=== PATIENT | female | born 1960 ===

== ENCOUNTER 2017-10-27 22:56 | Emergency (ER) | payer BC, MEDICAID ==
[2017-10-27 23:00] VITALS: BMI 37.0
[2017-10-27 23:03] VITALS: BP 138/87; RESP 16; TEMP 98.2; O2SAT 97
[2017-10-27] MEDS ORDERED: Sodium Chloride 0.9% 1,000 ML IV STA (23:18)
[2017-10-28 00:33] LABS: BASO # 0.1 K/uL (0.0-0.2); BASO % 0.6 % (0.0-2.0); EOS # 0.3 K/uL (0.0-0.7); EOS % 2.4 % (0.0-4.0); HEMOGLOBIN 13.4 g/dL (12.0-16.0); LYMPH # 2.6 K/uL (1.0-4.3); MEAN CELL VOLUME 91.6 fl (81.0-99.0); MEAN CORPUSCULAR HEMOGLOBIN 31.6 pg (27.0-31.0); MEAN CORPUSCULAR HGB CONC 34.5 g/dL (33.0-37.0); MEAN PLATELET VOLUME 8.2 fl (7.2-11.7); MONO # 0.9 K/uL (0.0-0.8); MONO % 7.3 % (0.0-10.0); NEUT % 69.7 % (50.0-75.0); RBC 4.24 Mil/uL (3.80-5.20); RED CELL DISTRIBUTION WIDTH 13.3 % (11.5-14.5); WHITE BLOOD COUNT 12.9 K/uL (4.8-10.8)
[2017-10-28 00:36] LABS: ALT/SGPT 37 U/L (9-52); AST/SGOT 32 U/L (14-36); CALCIUM 9.9 mg/dL (8.4-10.2); GFR AFRICAN-AMERICAN > 60; GFR NON-AFRICAN AMERICAN > 60; LIPASE 41 U/L (23-300)
[2017-10-28 00:39] LABS: SQUAMOUS EPITHIAL 2 /hpf (0-5); URINE BILIRUBIN NEGATIVE (NEGATIVE); URINE BLOOD SMALL (NEGATIVE); URINE CLARITY SLIGHTY-CLOUDY (Clear); URINE COLOR YELLOW (YELLOW); URINE GLUCOSE (UA) NEG (Normal); URINE LEUKOCYTE ESTERASE NEG Leu/uL (Negative); URINE PROTEIN 30 mg/dL (NEGATIVE); URINE UROBILINOGEN 0.2-1.0 mg/dL (0.2-1.0)
--- NOTE | 2017-10-28 00:57 | ED PDOC ---
HPI:Nausea, Vomiting, Diarrhea Time Seen by Provider: 10/27/17 23:05 Chief Complaint (Nursing): Dizziness/Lightheaded Chief Complaint (Provider): Vomiting and Dizziness History Per: Patient History/Exam Limitations: no limitations Onset/Duration Of Symptoms: Hrs (x1) Current Symptoms Are (Timing): Still Present Associated Symptoms: Nausea, Vomiting. denies: Other ((-) abdominal pain or headache) Additional Complaint(s): 57 year old female presents to ED with complaints of vomiting and dizziness x1 hour and has a past medical history of diabetes mellitus, HTN, and dyslipidemia. Patient notes sudden on set of symptoms, describing her dizziness as a "room spinning" sensation. (+) nausea, (-) head injury, headache or abdominal pain. PCP: Nida Past Medical History Reviewed: Historical Data, Nursing Documentation, Vital Signs Vital Signs: Last Vital Signs Temp 98.2 F 10/27/17 23:00 Pulse 100 H 10/27/17 23:00 Resp 16 10/27/17 23:00 BP 138/87 10/27/17 23:00 Pulse Ox 97 10/27/17 23:00 - Medical History PMH: Diabetes, HTN, Hypercholesterolemia, Migraine - Surgical History Surgical History: Appendectomy, CABG (3), Cholecystectomy, (x3) - Family History Family History: States: Unknown Family Hx - Living Arrangements Living Arrangements: With Family - Social History Current smoker - smoking cessation education provided: No Ex-Smoker (has not smoked in the last 12 months): No Alcohol: None Drugs: Denies - Immunization History Hx Tetanus Toxoid Vaccination: Yes (2012) - Home Medications Home Medications: Ambulatory Orders Medication Instructions Recorded Aspirin [Aspirin EC] 81 mg PO DAILY #0 ect 11/02/15 Atorvastatin [Lipitor] 10 mg PO DAILY #0 tab 11/02/15 Enalapril Maleate [Vasotec] 5 mg PO DAILY #0 tab 11/02/15 GlipiZIDE [Glucotrol] 5 mg PO QPM #0 tab 11/02/15 GlipiZIDE [Glucotrol] 10 mg PO DAILY #0 tab 11/02/15 Hydrochlorothiazide [HCTZ] 25 mg PO DAILY #0 tablet 11/02/15 Ketotifen Fumarate [Itchy Eye] 1 drop EACHEYE BID PRN #0 drops 11/02/15 Loratadine [Claritin] 10 mg PO DAILY PRN #0 tab 11/02/15 Penicillin VK [Penicillin VK Tab] 500 mg PO BID #20 tab 11/02/15 amLODIPine [Norvasc] 10 mg PO DAILY #0 tab 11/02/15 Meclizine [Antivert] 25 mg PO Q6 PRN #16 tab 10/28/17 - Allergies Allergies/Adverse Reactions: Allergies Allergy/AdvReac Type Severity Reaction Status Date / Time metformin Allergy RASH Verified 10/27/17 22:59 Review of Systems ROS Statement: Except As Marked, All Systems Reviewed And Found Negative Gastrointestinal: Positive for: Nausea, Vomiting. Negative for: Abdominal Pain Neurological: Positive for: Dizziness. Negative for: Headache Physical Exam - Reviewed Nursing Documentation Reviewed: Yes Vital Signs Reviewed: Yes - Physical Exam Appears: Positive for: Uncomfortable Head Exam: Positive for: ATRAUMATIC, NORMOCEPHALIC Skin: Positive for: Normal Color, Warm, Dry Eye Exam: Negative for: Nystagmus Cardiovascular/Chest: Positive for: Regular Rate, Rhythm. Negative for: Tachycardia Respiratory: Positive for: Normal Breath Sounds. Negative for: Respiratory Distress Gastrointestinal/Abdominal: Positive for: Soft. Negative for: Tenderness Extremity: Positive for: Normal ROM Neurologic/Psych: Positive for: Alert, Oriented, Gait (steady). Negative for: Motor/Sensory Deficits - Laboratory Results Result Diagrams: 10/27/17 23:40 10/27/17 23:40 - ECG ECG: Positive for: Interpreted By Me, Viewed By Me ECG Rhythm: Positive for: Sinus Rhythm, Nonspecific Changes Interpretation Of Abn EKG: LVH Rate: 86 (23:46 10/27/2017) O2 Sat by Pulse Oximetry: 97 (RA) Pulse Ox Interpretation: Normal Medical Decision Making Medical Decision Makin Initial impression: acute vertiginous dizziness Initial plan: * EKG * Labs * Lipase * Trop I * Antivert 25mg PO * NS IV * Zofran 4mg PO * UA * Re-eval 0153 Labs reviewed: no clinically significant abnormalities except for mild hyperglycemia. Patient reports marked improvement in symptoms. Patient is stable for discharge with a prescription of Meclizine. Dx: vertigo Condition: improved Scribe Attestation: Documented by Bobbi Grossman acting as a scribe Alvarez Reagan MD. Scribe Attestation: All medical record entries made by the Scribe were at my direction and personally dictated by me. I have reviewed the chart and agree that the record accurately reflects my personal performance of the history, physical exam, medical decision making, and the department course for this patient. I have also personally directed, reviewed, and agree with the discharge instructions and disposition. Disposition - Clinical Impression Clinical Impression: Vertigo - Disposition Disposition: Routine/Home Disposition Time: 01:53 Condition: STABLE Prescriptions: Meclizine [Antivert] 25 mg PO Q6 PRN #16 tab PRN Reason: Dizziness Instructions: Vertigo (a Type of Dizziness) Forms: [employer] (South Korean)
[2017-10-28 00:58] LABS: BLOOD UREA NITROGEN 16 mg/dl (7-17)
[2017-10-28 01:20] VITALS: PULSE 86
--- NOTE | 2017-10-28 07:45 | CARD ---
APPROVED REPORT EKG Measurement Heart [id number] 164P3 [id number] <Conclusion> Normal sinus rhythm Possible Left atrial enlargement Left ventricular hypertrophy Possible Inferior infarct, age undetermined Abnormal ECG
== END 2017-10-28 03:40 | disposition home or self-care (01) ==
LOC: H.ER 22:56
DX: R42 Dizziness and giddiness (principal); E11.9 Type 2 diabetes mellitus without complications; I10 Essential (primary) hypertension; Z87.891 Personal history of nicotine dependence; Z79.84 Long term (current) use of oral hypoglycemic drugs; Z95.1 Presence of aortocoronary bypass graft; Z79.82 Long term (current) use of aspirin; E78.00 Pure hypercholesterolemia, unspecified
CPT/HCPCS: 80053; 81003; 82948; 83690; 84484; 85025; 93005; 99285; J7040

== ENCOUNTER 2018-06-25 20:57 | Emergency (ER) | payer BC ==
[2018-06-25 20:57] VITALS: BMI 37.0
[2018-06-25 21:39] VITALS: RESP 16
[2018-06-25] MEDS ORDERED: Albuterol 0.083% Inhal Sol (2.5 mg/3 mL) UD ONE (22:19)
[2018-06-25] MEDS ORDERED: Promethazine/Cod 6.25mg-10mg/5ml Syr UD ONE ×2 (22:20→22:24)
[2018-06-25] MEDS: Promethazine/Cod 6.25mg-10mg/5ml Syr UD PO STA (22:24)
--- NOTE | 2018-06-25 22:24 | ED PDOC ---
History of Present Illness History of Present Illness: Prisca Baker is a 58 year old female with a past medical history of hypertension, hypercholesterolemia, and diabetes who is presenting to the ED for evaluation of fever, productive cough and associated chest pain onset 3 days ago. Patient states that she thought she was wheezing but denies any difficulty breathing. She states that she has been taking cough medicine with codeine and reports that she was started on Augmentin for sinusitis. Patient states that she did get her flu shot and was flu negative when she went to her PMD earlier this week. She denies any vomiting, diarrhea, or other complaints. PMD: [place] HPI: Influenza Time Seen by Provider: 06/25/18 22:15 Chief Complaint: Fever Chief Complaint (Provider): Fever History Per: Patient Exam Limitations: no limitations Onset/Duration Of Symptoms: Days Symptoms include: fever, cough, chest pain. denies: vomiting, diarrhea, diff iculty breathing Past Medical History Reviewed: Historical Data, Nursing Documentation, Vital Signs Vital Signs: Last Vital Signs Temp 100.9 F H 06/25/18 21:36 Pulse 118 H 06/25/18 21:36 Resp 16 06/25/18 21:36 BP 134/79 06/25/18 21:36 Pulse Ox 97 06/25/18 21:36 - Medical History PMH: Diabetes, HTN, Hypercholesterolemia, Migraine - Surgical History Surgical History: Appendectomy, CABG (3), Cholecystectomy, (x3) - Family History Family History: States: Unknown Family Hx - Social History Current smoker - smoking cessation education provided: No Alcohol: None Drugs: Denies - Immunization History Hx Tetanus Toxoid Vaccination: Yes (2012) - Home Medications Home Medications: Ambulatory Orders Medication Instructions Recorded RX: Aspirin [Aspirin EC] 81 mg PO DAILY #0 ect 11/02/15 RX: Atorvastatin [Lipitor] 10 mg PO DAILY #0 tab 11/02/15 RX: Enalapril Maleate [Vasotec] 5 mg PO DAILY #0 tab 11/02/15 RX: GlipiZIDE [Glucotrol] 5 mg PO QPM #0 tab 11/02/15 RX: GlipiZIDE [Glucotrol] 10 mg PO DAILY #0 tab 11/02/15 RX: Hydrochlorothiazide [HCTZ] 25 mg PO DAILY #0 tablet 11/02/15 RX: Ketotifen Fumarate [Itchy Eye] 1 drop EACHEYE BID PRN #0 drops 11/02/15 RX: Loratadine [Claritin] 10 mg PO DAILY PRN #0 tab 11/02/15 RX: Penicillin VK [Penicillin VK 500 mg PO BID #20 tab 11/02/15 Tab] RX: amLODIPine [Norvasc] 10 mg PO DAILY #0 tab 11/02/15 Meclizine [Antivert] 25 mg PO Q6 PRN #16 tab 10/28/17 RX: Albuterol HFA [Ventolin HFA 90 2 puff IH [id number] #1 inh 06/26/18 mcg/actuation (8 g)] RX: Azithromycin [Z-Arnav] 250 mg PO ASDIR #6 tab 06/26/18 - Allergies Allergies/Adverse Reactions: Allergies Allergy/AdvReac Type Severity Reaction Status Date / Time No Known Allergies Allergy Verified 06/25/18 21:36 Review of Systems ROS Statement: Except As Marked, All Systems Reviewed And Found Negative Constitutional: Positive for: Fever Cardiovascular: Positive for: Chest Pain Respiratory: Positive for: Cough. Negative for: Shortness of Breath Gastrointestinal: Negative for: Vomiting, Diarrhea Physical Exam - Reviewed Nursing Documentation Reviewed: Yes Vital Signs Reviewed: Yes - Physical Exam Appears: Positive for: Non-toxic, No Acute Distress Head Exam: Positive for: ATRAUMATIC, NORMAL INSPECTION, NORMOCEPHALIC Skin: Positive for: Normal Color, Warm, Dry Eye Exam: Positive for: EOMI, Normal appearance, PERRL ENT: Positive for: Normal ENT Inspection Neck: Positive for: Normal, Painless ROM Cardiovascular/Chest: Positive for: Chest Non Tender (mild anterior chest wall tenderness), Tachycardia Respiratory: Positive for: Normal Breath Sounds. Negative for: Wheezing, Respiratory Distress Gastrointestinal/Abdominal: Positive for: Normal Exam, Soft. Negative for: Tenderness Extremity: Positive for: Normal ROM. Negative for: Deformity, Swelling Neurologic/Psych: Positive for: Alert, Oriented. Negative for: Motor/Sensory Deficits Medical Decision Making Medical Decision Making: Time: 22:06 Impression: fever, cough, chest pain Differentials: pneumonia, bronchitis, influenza, rule out sepsis Plan: --VBG Shock Panel --EKG --BMP --CBC --CXR --Albuterol 2.5 mg INH --Blood Culture --Peak Flow Pre/Post TX --Influenza A B Scribe Attestation: Documented by Liv Cole, acting as a scribe for Jeff Olvera MD. Provider Scribe Attestation: All medical record entries made by the Scribe were at my direction and personally dictated by me. I have reviewed the chart and agree that the record accurately reflects my personal performance of the history, physical exam, medical decision making, and the department course for this patient. I have also personally directed, reviewed, and agree with the discharge instructions and disposition. - Laboratory Results Result Diagrams: 06/25/18 22:26 06/25/18 22:26 - ECG O2 Sat by Pulse Oximetry: 97 (RA) Pulse Ox Interpretation: Normal - Radiology X-Ray: Interpreted by Me, Viewed By Me X-Ray Interpretation: Infiltrates (?) - Progress Re-evaluation Time: 01:30 Condition: Re-examined, Improved Disposition - Clinical Impression Clinical Impression: Pneumonia - Patient ED Disposition Is Patient to be Admitted: No Doctor Will See Patient In The: Office Counseled Patient/Family Regarding: Studies Performed, Diagnosis, Need For Followup - Disposition Referrals: Dav Francois MD [Medical Doctor] - Disposition: Routine/Home Disposition Time: 01:31 Condition: GOOD Additional Instructions: PRISCA BAKER, thank you for letting us take care of you today. Your provider was Jeff Olvera MD and you were treated for POSS HIGH BLOOD PRESSURE, POSS SINUS INFECTION. The emergency medical care you received today was directed at your acute symptoms. If you were prescribed any medication, please fill it and take as directed. It may take several days for your symptoms to resolve. Return to the Emergency Department if your symptoms worsen, do not improve, or if you have any other problems. Please contact your doctor or call one of the physicians/clinics you have been referred to that are listed on the Patient Visit Information form that is included in your discharge packet. Bring any paperwork you were given at discharge with you along with any medications you are taking to your follow up visit. Our treatment cannot replace ongoing medical care by a primary care provider outside of the emergency department. Thank you for allowing the [facility] team to be part of your care today. If you had an X-Ray or CT scan: A Radiologist will review the ED reading if any change in treatment is needed we will contact you. If you had a blood, urine, or wound culture: It will take several days for the results, if any change in treatment is needed we will contact you. If you had an STI test: It will take 48 hours for the results. Please call after 1 week if you have not heard back. Prescriptions: RX: Albuterol HFA [Ventolin HFA 90 mcg/actuation (8 g)] 2 puff IH [id number] #1 inh RX: Azithromycin [Z-Arnav] 250 mg PO ASDIR #6 tab Instructions: Pneumonia in Adults Forms: [employer] (Amharic), [facility] ED School/Work Excuse
[2018-06-25 22:28] LABS: VENOUS BLOOD GAS BASE EXCESS 4.5 mmol/L (0.0-2.0); VENOUS BLOOD GAS PCO2 39 mmHg (40-60); VENOUS BLOOD GAS PO2 44 mm/Hg (30-55); VENOUS BLOOD PH 7.47 (7.32-7.43)
[2018-06-25] MEDS: Albuterol 0.083% Inhal Sol (2.5 mg/3 mL) UD INH STA (22:29)
[2018-06-25 22:52] LABS: BASO # 0.1 K/uL (0.0-0.2); BASO % 0.4 % (0.0-2.0); EOS # 0.3 K/uL (0.0-0.7); EOS % 2.2 % (0.0-4.0); HEMOGLOBIN 12.8 g/dL (12.0-16.0); LYMPH # 1.8 K/uL (1.0-4.3); LYMPH % 12.7 % (20.0-40.0); MEAN CELL VOLUME 90.5 fl (81.0-99.0); MEAN CORPUSCULAR HEMOGLOBIN 30.9 pg (27.0-31.0); MEAN CORPUSCULAR HGB CONC 34.2 g/dL (33.0-37.0); MEAN PLATELET VOLUME 7.2 fl (7.2-11.7); MONO # 1.6 K/uL (0.0-0.8); MONO % 11.2 % (0.0-10.0); NEUT # 10.2 K/uL (1.8-7.0); NEUT % 73.5 % (50.0-75.0); RBC 4.13 Mil/uL (3.80-5.20); RED CELL DISTRIBUTION WIDTH 13.9 % (11.5-14.5); WHITE BLOOD COUNT 13.8 K/uL (4.8-10.8)
[2018-06-25 22:53] LABS: BLOOD UREA NITROGEN 14 mg/dl (7-17); CALCIUM 9.8 mg/dL (8.4-10.2); GFR NON-AFRICAN AMERICAN > 60
[2018-06-25] MEDS ORDERED: Potassium Chloride 20 mEq ER Tab PO ONE (23:55)
[2018-06-25] MEDS ORDERED: cefTRIAXone (Rocephin) 1 gm Inj ONE (23:55)
[2018-06-26] MEDS: Potassium Chloride 20 mEq ER Tab PO ONE (00:01)
[2018-06-26 01:58] VITALS: BP 123/64; PULSE 100; TEMP 98.9
[2018-06-26 03:35] VITALS: O2SAT 97
--- NOTE | 2018-06-26 07:55 | CARD ---
APPROVED REPORT Date of service: 06/25/2018 EKG Measurement Heart [id number] OR [id number] [id number] <Conclusion> Sinus tachycardia Otherwise normal ECG
--- NOTE | 2018-06-26 09:26 | RAD ---
Date of service: 06/25/2018 HISTORY: fever cough chest pain COMPARISON: 11/01/2015 TECHNIQUE: Chest PA and lateral FINDINGS: LUNGS: No active pulmonary disease. PLEURA: No significant pleural effusion identified. No pneumothorax apparent. CARDIOVASCULAR: No aortic atherosclerotic calcification present. Normal cardiac size. No pulmonary vascular congestion. OSSEOUS STRUCTURES: No significant abnormalities. VISUALIZED UPPER ABDOMEN: Normal. OTHER FINDINGS: None. IMPRESSION: No active disease.
== END 2018-06-26 01:40 | disposition home or self-care (01) ==
LOC: H.ER 20:57
DX: J18.9 Pneumonia, unspecified organism (principal); E11.9 Type 2 diabetes mellitus without complications; E78.00 Pure hypercholesterolemia, unspecified; I10 Essential (primary) hypertension; Z79.84 Long term (current) use of oral hypoglycemic drugs; Z95.1 Presence of aortocoronary bypass graft
CPT/HCPCS: 71046; 80048; 82803; 85025; 87040; 87804; 93005; 96374; 99283; J0696